=== PATIENT | male | born 1955 | race Caucasian/White ===

== ENCOUNTER → 2017-10-07 | Outpatient (CLI) | payer OTHER ==
[~2017-10-07] MED LIST: NO HOME MEDICATIONS
== END ==
LOC: COL.RAD 07:07
DX: M47.812 Spondylosis without myelopathy or radiculopathy, cervical region (principal); M48.02 Spinal stenosis, cervical region; Z98.1 Arthrodesis status; G58.9 Mononeuropathy, unspecified; Z87.828 Personal history of other (healed) physical injury and trauma
CPT/HCPCS: A9585